=== PATIENT | female | born 1940 | race Caucasian/White ===

== ENCOUNTER 2017-03-18 07:30 | Emergency (ER) | payer MEDICARE, BC ==
--- NOTE | 2017-03-18 08:11 | ED ---
Skin Complaint - HPI Summary HPI Summary: 76 yr old with itchy rash to the legs, and neck, and throat irritation. The patient states she was weed wacking poison sara this past weekend, and that she began to have itching and rash. She states her throat is irritated as well. No drooling, no stridor. - History of Current Complaint Chief Complaint: UCRespiratory Time Seen by Provider: 03/18/17 07:44 Stated Complaint: RASH/THROAT IRRITATION Hx Last Menstrual Period: 1979 - Allergy/Home Medications Allergies/Adverse Reactions: Allergies Allergy/AdvReac Type Severity Reaction Status Date / Time Rosuvastatin [From Crestor] Allergy Intermediate ITCHING Verified 03/18/17 07:46 AND RASH Sulfa Antibiotics Allergy Unknown Unknown Verified 03/18/17 07:46 Reaction Details Erythromycin Allergy Rash Verified 03/18/17 07:46 GENERIC LOTREL Allergy Intermediate Rash Uncoded 03/18/17 07:46 Home Medications: Home Medications Diphenhydramine HCl [Benadryl Allergy 25 MG CAP] 25 mg PO ONCE PRN 03/18/17 [ History Confirmed 03/18/17] Hydrocortisone (Topical) [Cortaid Maximum Strength] 1 % EX ONCE PRN 03/18/17 [ History Confirmed 03/18/17] PMH/Surg Hx/FS Hx/Imm Hx Previously Healthy: Yes Cardiovascular History: Reports: Hx Hypertension - Surgical History Surgery Procedure, Year, and Place: HYSTERECTOMY-TOTAL Infectious Disease History: No Infectious Disease History: Denies: Traveled Outside the [place] in Last 30 Days - Family History Known Family History: Positive: None - Social History Occupation: Retired Lives: Alone Alcohol Use: Occasionally Substance Use Type: Reports: None Smoking Status (MU): Never Smoked Tobacco Review of Systems Constitutional: Negative Positive: Sore Throat Positive: Rash All Other Systems Reviewed And Are Negative: Yes Physical Exam Triage Information Reviewed: Yes Vital Signs On Initial Exam: Initial Vitals Temp Pulse Resp BP Pulse Ox 98.2 F 79 18 144/89 98 03/18/17 07:47 03/18/17 07:47 03/18/17 07:47 03/18/17 07:47 03/18/17 07:47 Vital Signs Reviewed: Yes Appearance: Positive: Well-Appearing, No Pain Distress, Well-Nourished Skin: Positive: Other - The patient has red, confluent, raised, brawny appearing sking on leg, and some on the anterior neck, consistent with dermatitis. No secondary cellulitis. Eyes: Positive: EOMI ENT: Positive: Pharynx normal. Negative: Nasal congestion, Muffled/hoarse voice Neck: Positive: Supple Respiratory/Lung Sounds: Positive: Clear to Auscultation, Breath Sounds Present Cardiovascular: Positive: Normal, RRR. Negative: Murmur Abdomen Description: Positive: Nontender Musculoskeletal: Positive: Normal, Strength/ROM Intact Neurological: Positive: Normal, Sensory/Motor Intact, Alert, Oriented to Person Place, Time, CN Intact II-III Diagnostics - Vital Signs Vital Signs Temp Pulse Resp BP Pulse Ox 03/18/17 07:47 98.2 F 79 18 144/89 98 - Laboratory Lab Statement: Any lab studies that have been ordered have been reviewed, and results considered in the medical decision making process. Course/Dx - Course Course Of Treatment: 76 yr female with dermatitis and throat irritation. Will Rx with medrol dose pack. She states she has taken the dose pack in the past and it has worked well for the same issue. - Diagnoses Provider Diagnoses: Poison sara dermatitis Discharge - Discharge Plan Condition: Good Disposition: HOME Prescriptions: Methylprednisolone [Medrol Dosepak 4 MG*] 4 mg PO .SEE FELIPA INSTRUCTION #1 pkt Patient Education Materials: Poison Sara (ED) Referrals: Iván Byrd MD [Primary Care Provider] - 5 Days
[2017-03-18 08:13] VITALS: BP 144/89
== END 2017-03-18 08:15 | disposition home or self-care (01) ==
LOC: UCCORT 07:30
DX: L23.7 Allergic contact dermatitis due to plants, except food (principal); T63.791A Toxic effect of contact with other venomous plant, accidental (unintentional), initial encounter; Y92.017 Garden or yard in single-family (private) house as the place of occurrence of the external cause; Y93.H2 Activity, gardening and landscaping; I10 Essential (primary) hypertension
CPT/HCPCS: 99212; G0463

== ENCOUNTER 2018-04-11 11:53 | Emergency (ER) | payer MEDICARE, BC ==
[2018-04-11 12:34] VITALS: BP 149/79
--- NOTE | 2018-04-11 12:41 | UC ---
Complaint Female HPI - HPI Summary HPI Summary: urinary frequency x 2 days, lower abdominal pressure, urgency , no fever, no chills, no flank pain - History Of Current Complaint Chief Complaint: UCGU Stated Complaint: URINARY COMPLAINT Time Seen by Provider: 04/11/18 12:32 Hx Obtained From: Patient Hx Last Menstrual Period: 1979 Onset/Duration: Gradual Onset, Lasting Days - 2, Still Present Timing: Constant Severity Initially: Moderate Severity Currently: Moderate Pain Intensity: 7 Character: Cramping Aggravating Factor(s): Urination Alleviating Factor(s): Nothing Associated Signs And Symptoms: Negative: Fever, Back Pain, Vaginal Bleeding/ Discharge, Vaginal Discharge, Nausea, Vomiting(# Of Episodes =), Genital Swelling, Genital Blisters, Retained Foregin Body (Specify) Related Hx: Similar Episode/Dx as: - UTI - Allergies/Home Medications Allergies/Adverse Reactions: Allergies Allergy/AdvReac Type Severity Reaction Status Date / Time MS Rosuvastatin Allergy Intermediate ITCHING Verified 03/18/17 07:46 [From Crestor] AND RASH MS Sulfa Antibiotics Allergy Unknown Unknown Verified 03/18/17 07:46 [Sulfa Antibiotics] Reaction Details MS Erythromycin Allergy Rash Verified 03/18/17 07:46 [Erythromycin] GENERIC LOTREL Allergy Intermediate Rash Uncoded 03/18/17 07:46 PMH/Surg Hx/FS Hx/Imm Hx Cardiovascular History: Hypertension - Surgical History Surgical History: None Surgery Procedure, Year, and Place: HYSTERECTOMY-TOTAL - Family History Known Family History: Positive: Hypertension - Social History Alcohol Use: Occasionally Substance Use Type: None Smoking Status (MU): Never Smoked Tobacco Review of Systems Constitutional: Negative Skin: Negative Eyes: Negative ENT: Negative Respiratory: Negative Genitourinary: Dysuria, Frequency, Urgency Is Patient Immunocompromised?: No All Other Systems Reviewed And Are Negative: Yes Physical Exam Triage Information Reviewed: Yes Appearance: Well-Appearing, No Pain Distress, Well-Nourished Vital Signs: Initial Vital Signs Temp 99.1 F 04/11/18 12:28 Pulse 82 04/11/18 12:28 Resp 18 04/11/18 12:28 BP 149/79 04/11/18 12:28 Pulse Ox 98 04/11/18 12:28 Vital Signs Reviewed: Yes Eyes: Positive: Conjunctiva Clear ENT: Positive: Normal ENT inspection, Hearing grossly normal, Pharynx normal Neck: Positive: Supple, Nontender, No Lymphadenopathy Respiratory: Positive: Chest non-tender, Lungs clear, Normal breath sounds Cardiovascular: Positive: RRR, No Murmur, Pulses Normal Abdomen Description: Positive: Nontender, Soft. Negative: CVA Tenderness (R), CVA Tenderness (L), Distended, Guarding Bowel Sounds: Positive: Present Skin Exam: Normal Complaint Female Dx - Differential Dx/Diagnosis Provider Diagnoses: UTI Discharge - Sign-Out/Discharge Documenting (check all that apply): Patient Departure - Discharge Plan Condition: Stable Disposition: HOME Prescriptions: Ciprofloxacin TAB* [Cipro 250 MG Tab*] 250 mg PO BID #14 tab Patient Education Materials: Urinary Tract Infection in Older Adults (ED) Referrals: Iván Byrd MD [Primary Care Provider] - - Billing Disposition and Condition Condition: STABLE Disposition: Home
== END 2018-04-11 12:51 | disposition home or self-care (01) ==
LOC: UCCORT 11:53
DX: N39.0 Urinary tract infection, site not specified (principal); B96.20 Unspecified Escherichia coli [E. coli] as the cause of diseases classified elsewhere; Z88.1 Allergy status to other antibiotic agents; Z88.8 Allergy status to other drugs, medicaments and biological substances; I10 Essential (primary) hypertension
CPT/HCPCS: 81003; 87077; 87086; 87186; 99212; G0463